=== PATIENT | male | born 1955 | race Caucasian/White ===

== ENCOUNTER 2020-02-11 14:00 | Outpatient (CLI) | payer BC, SELFPAY ==
--- NOTE | ~2020-02-11 | US_ITS ---
US arterial ankle brachial ind INDICATION: Mononeuropathy of the lower extremities TECHNIQUE: Segmental pressures and plethysmographic and Doppler waveforms of the brachial and lower e xtremity arteries were obtained. COMPARISON: None. FINDINGS: Right and left brachial artery pressures of 131 mm Hg and 126 mm Hg, respectively, are concordant (no rmal difference <= 30 mmHg). The right ankle-brachial index (HASEEB) is 1.27 (normal >= 0.9-1.0). The right great toe-brachial index (TBI) is 0.78 (normal >= 0.60). The left HASEEB is 1.21. The left TBI is 0.85. IMPRESSION: 1. Normal bilateral ankle and toe brachial indices. Reviewed, dictated and finalized at location B.
== END 2020-02-11 14:01 | disposition home or self-care (01) ==
PROVIDERS: PCP Family Medicine; Visit Provider Family Medicine
DX: G57.93 Unspecified mononeuropathy of bilateral lower limbs (principal)
CPT/HCPCS: 93922

== ENCOUNTER 2020-06-26 09:31 | Outpatient (CLI) | payer BC, SELFPAY ==
--- NOTE | ~2020-06-26 | XR_ITS ---
EXAMINATION: XR chest 2V DATE: 06/26/2020 10:43 INDICATION: Shortness of breath. TECHNIQUE: Frontal and lateral views of the chest were obtained on 3 radiographs. COMPARISON: CT abdomen and pelvis 08/22/2014 FINDINGS: There is mild atelectasis at left lung base. No pleural effusion or pneumothorax. The heart size is normal. IMPRESSION: 1. Mild atelectasis at left lung base. Reviewed, dictated and finalized at location A. RETE PRECAST MOULDER
[2020-06-26 09:49] LABS: Basophils Absolute Auto 0.05 K/mm3 (0.00-0.10); Basophils Percent Auto 0.9 % (0.0-1.0); Eosinophils Absolute Auto 0.17 K/mm3 (0.02-0.50); Eosinophils Percent Auto 3.1 % (1.0-6.0); Hematocrit 48.7 % (37.0-46.0); Hemoglobin 15.8 g/dL (12.4-15.3); Immature Granulocyte Absolute 0.02 K/mm3 (0.00-0.00); Immature Granulocyte Percent A 0.4 % (0.0-0.0); Lymphocytes Absolute Auto 1.31 K/mm3 (1.10-4.50); Lymphocytes Percent Auto 24.3 % (18.0-42.0); Mean Corpuscular HGB Conc 32.4 g/dL (32.0-36.0); Mean Corpuscular Hemoglobin 30.2 pg (27.0-31.0); Mean Corpuscular Volume 93.1 fL (78.0-102.0); Monocytes Percent Auto 7.4 % (2.0-11.0); Neutrophils Absolute Auto 3.5 K/mm3 (1.7-7.2); Neutrophils Percent Auto 63.9 % (50.0-70.0); Platelet Count Result 235 K/mm3 (150-420); Red Blood Count 5.23 M/mm3 (4.70-6.10); Red Cell Distribution Width 14.2 % (11.6-14.4); White Blood Count 5.4 K/mm3 (4.8-10.8)
[2020-06-26 09:59] LABS: Add Urine Microscopic? NO; Appearance Urine Clear (Clear); Bilirubin Urine Negative (Negative); Blood Urine Negative (Negative); Color Urine Yellow (Yellow); Glucose Urine UA Negative (Negative); Ketones Urine Negative (Negative); Leukocyte Esterase Ur Negative (Negative); Nitrate Urine Negative (Negative); Protein Urine Negative (Negative); Urobilinogen Urine 0.2 mg/dL (0.2-1.0); pH Urine 5.5 (5.0-8.0)
[2020-06-26 10:25] LABS: Alanine Aminotransferase 32 U/L (16-63); Albumin Level 3.8 g/dL (3.4-5.0); Alkaline Phosphatase 64 U/L (46-116); Anion Gap 9 mmol/L (8-16); Aspartate Amino Transferase 18 U/L (15-37); Bilirubin,Total 0.5 mg/dL (0.00-1.00); Blood Urea Nitrogen 14 mg/dL (7-18); Carbon Dioxide 26 mmol/L (21-32); Chloride 105 mmol/L (98-108); Cholesterol 152 mg/dL (0-200); Creatine Kinase 132 U/L (39-308); Estimated Glomerular Filt Rate > 60; Glucose 105 mg/dL (70-99); HDL Direct 40 mg/dL (40-60); LDL Cholesterol Calculated 93 mg/dL (<130); Osmolality Calculated 290 mOsm/kg (285-295); Potassium 4.4 mmol/L (3.5-5.1); Sodium 140 mmol/L (136-145); Total Protein 6.9 g/dL (6.4-8.2); Triglycerides 94 mg/dL (0-150)
== END 2020-06-26 09:32 | disposition home or self-care (01) ==
PROVIDERS: PCP Internal Medicine; Visit Provider Internal Medicine
DX: Z00.00 Encounter for general adult medical examination without abnormal findings (principal); E78.2 Mixed hyperlipidemia; I10 Essential (primary) hypertension; R06.00 Dyspnea, unspecified
CPT/HCPCS: 36415; 71046; 80053; 80061; 81003; 82550; 85025

== ENCOUNTER 2020-06-29 08:35 | Outpatient (CLI) | payer BC, SELFPAY | END 2020-06-29 08:36 | disposition home or self-care (01) | PROVIDERS: PCP Internal Medicine; Visit Provider Internal Medicine | DX: R06.00 Dyspnea, unspecified (principal) | CPT/HCPCS: 94060; 94726; 94729 ==

== ENCOUNTER 2020-07-17 06:59 | Outpatient (CLI) | payer BC, SELFPAY ==
--- NOTE | ~2020-07-17 | CT_ITS ---
EXAMINATION: CT chest abdomen pelvis w con DATE: 07/17/2020 07:41 INDICATION: Left chest pain with deep inspiration. COPD. Left-sided and generalized abdominal pain, n ausea. Skin cancer. TECHNIQUE: Computed tomography (CT) of the chest, abdomen, and pelvis was performed with 100 cc Omnip aque 350 intravenous contrast. Automated exposure control and iterative reconstruction technique were employed. Exam dose: 1713.52 mGy-cm total exam DLP. COMPARISON: 08/22/2014 CT abdomen pelvis FINDINGS: CHEST CT: There is mild patchy infiltrate involving primarily dependent and basilar left lower lobe. There is a focal area of calcification and surrounding probable fibrotic change in the posterior medi al left upper lobe. No hilar or mediastinal mass lesion or lymphadenopathy. Normal size and homogeneous enhancement of th e thyroid gland. Normal heart size. Coronary artery calcification. Mild aortic arch calcification. No pericardial or pleural effusion. Diffuse idiopathic skeletal hyperostosis of the thoracic spine. There is degenerative disc disease of the lower cervical spine. ABDOMEN/PELVIS CT: Probable 7 mm hepatic cyst (series 3 image 138). The liver, gallbladder, bile ducts, pancreas, pancre atic duct and spleen otherwise appear normal. Normal morphology of the adrenal glands. 3 cm posterior mid right renal cyst. 6.5 mm posterior upper pole left renal cyst. 3.4 mm lower pole nonobstructing left renal calculus. No ureteral calculus or hydroureteronephrosis. The urinary bladder is unremarkable. There is prostate enlargement. No suspicious osteolytic or osteoblastic lesions. Moderate degenerative disc disease at L3-4 and L5-S 1 primarily. No suspicious osteolytic or osteoblastic lesions are noted. Right fat-containing inguinal hernia. There is atherosclerotic calcification of the abdominal aorta and iliac arteries but no aneurysm. No intraperitoneal or retroperitoneal or pelvic mass lesion or adenopathy or ascites. Normal appendix. There are numerous diverticula of the sigmoid and descending colon; no CT evidence o f diverticulitis. No bowel obstruction, bowel wall thickening, pneumatosis or intraperitoneal free air is detected. IMPRESSION: Patchy left lower lobe infiltrate 7 mm hepatic cyst Bilateral renal cysts Reviewed, dictated and finalized at Location A. Reviewed, dictated and finalized at location B. TER AND REWINDER MACHINE OPERATOR
== END 2020-07-17 07:00 | disposition home or self-care (01) ==
LOC: CHSIMG 07:00
PROVIDERS: PCP Internal Medicine; Visit Provider Internal Medicine
DX: J44.9 Chronic obstructive pulmonary disease, unspecified (principal); R10.9 Unspecified abdominal pain; R11.0 Nausea
CPT/HCPCS: 71260; 74177; Q9965; Q9967

== ENCOUNTER 2020-10-19 15:50 | Outpatient (CLI) | payer BC, SELFPAY ==
[2020-10-19 16:09] LABS: Hematocrit 47.7 % (37.0-46.0); Hemoglobin 15.6 g/dL (12.4-15.3); Mean Corpuscular HGB Conc 32.7 g/dL (32.0-36.0); Mean Corpuscular Hemoglobin 30.1 pg (27.0-31.0); Mean Corpuscular Volume 92.1 fL (78.0-102.0); Platelet Count Result 193 K/mm3 (150-420); Red Blood Count 5.18 M/mm3 (4.70-6.10); Red Cell Distribution Width 13.4 % (11.6-14.4); White Blood Count 6.7 K/mm3 (4.8-10.8)
[2020-10-19 17:21] LABS: Alanine Aminotransferase 33 U/L (16-63); Albumin Level 3.8 g/dL (3.4-5.0); Alkaline Phosphatase 64 U/L (46-116); Anion Gap 9 mmol/L (8-16); Aspartate Amino Transferase 19 U/L (15-37); Bilirubin,Total 0.5 mg/dL (0.00-1.00); Blood Urea Nitrogen 23 mg/dL (7-18); Calcium 8.6 mg/dL (8.5-10.1); Carbon Dioxide 28 mmol/L (21-32); Chloride 101 mmol/L (98-108); Estimated Glomerular Filt Rate 57; Glucose 112 mg/dL (70-99); Osmolality Calculated 290 mOsm/kg (285-295); Potassium 4.2 mmol/L (3.5-5.1); Prostate Specific Antigen 3.2 ng/mL (< OR = 4.0); Sodium 138 mmol/L (136-145); Total Protein 6.7 g/dL (6.4-8.2)
[2020-10-22 16:42] LABS: Testosterone Total 199 ng/dL (250-1100)
== END 2020-10-19 15:51 | disposition home or self-care (01) ==
PROVIDERS: PCP Internal Medicine
DX: E29.1 Testicular hypofunction (principal); R97.20 Elevated prostate specific antigen [PSA]
CPT/HCPCS: 36415; 80053; 84153; 84403; 85027

== ENCOUNTER 2021-01-19 08:53 | Outpatient (CLI) | payer BC, SELFPAY ==
[2021-01-19 09:08] LABS: Basophils Absolute Auto 0.05 K/mm3 (0.00-0.10); Eosinophils Absolute Auto 0.14 K/mm3 (0.02-0.50); Eosinophils Percent Auto 2.7 % (1.0-6.0); Hematocrit 48.6 % (37.0-46.0); Hemoglobin 16.1 g/dL (12.4-15.3); Immature Granulocyte Absolute 0.03 K/mm3 (0.00-0.00); Immature Granulocyte Percent A 0.6 % (0.0-0.0); Lymphocytes Absolute Auto 1.27 K/mm3 (1.10-4.50); Lymphocytes Percent Auto 24.8 % (18.0-42.0); Mean Corpuscular HGB Conc 33.1 g/dL (32.0-36.0); Mean Corpuscular Hemoglobin 30.9 pg (27.0-31.0); Mean Corpuscular Volume 93.3 fL (78.0-102.0); Monocytes Absolute Auto 0.38 K/mm3 (0.10-0.90); Monocytes Percent Auto 7.4 % (2.0-11.0); Neutrophils Absolute Auto 3.3 K/mm3 (1.7-7.2); Neutrophils Percent Auto 63.5 % (50.0-70.0); Platelet Count Result 205 K/mm3 (150-420); Red Blood Count 5.21 M/mm3 (4.70-6.10); Red Cell Distribution Width 14.5 % (11.6-14.4); White Blood Count 5.1 K/mm3 (4.8-10.8)
[2021-01-19 09:12] LABS: Add Urine Microscopic? NO; Appearance Urine Clear (Clear); Bilirubin Urine Negative (Negative); Blood Urine Negative (Negative); Color Urine Light Yellow (Yellow); Glucose Urine UA Negative (Negative); Ketones Urine Negative (Negative); Leukocyte Esterase Ur Negative (Negative); Nitrate Urine Negative (Negative); Protein Urine Negative (Negative); Urobilinogen Urine 0.2 mg/dL (0.2-1.0)
[2021-01-19 10:12] LABS: Erythrocyte Sedimentation Rate 2 mm/hr (0-20)
[2021-01-19 10:17] LABS: Alanine Aminotransferase 29 U/L (16-63); Albumin Level 3.8 g/dL (3.4-5.0); Alkaline Phosphatase 65 U/L (46-116); Anion Gap 11 mmol/L (8-16); Aspartate Amino Transferase 19 U/L (15-37); Bilirubin,Total 0.5 mg/dL (0.00-1.00); Blood Urea Nitrogen 14 mg/dL (7-18); Calcium 9.1 mg/dL (8.5-10.1); Carbon Dioxide 27 mmol/L (21-32); Chloride 101 mmol/L (98-108); Cholesterol 213 mg/dL (0-200); Creatine Kinase 183 U/L (39-308); Estimated Glomerular Filt Rate > 60; Glucose 106 mg/dL (70-99); HDL Direct 37 mg/dL (40-60); LDL Cholesterol Calculated 158 mg/dL (<130); Osmolality Calculated 288 mOsm/kg (285-295); Potassium 4.3 mmol/L (3.5-5.1); Sodium 139 mmol/L (136-145); Total Protein 6.7 g/dL (6.4-8.2); Triglycerides 92 mg/dL (0-150); Vitamin B12 583 pg/mL (193-986)
[2021-01-19 10:30] LABS: CRP < 0.2 mg/dL (0.0-0.9)
== END 2021-01-19 08:54 | disposition home or self-care (01) ==
PROVIDERS: PCP Internal Medicine; Visit Provider Internal Medicine
DX: E78.2 Mixed hyperlipidemia (principal); R06.00 Dyspnea, unspecified; I10 Essential (primary) hypertension; M62.81 Muscle weakness (generalized); J44.9 Chronic obstructive pulmonary disease, unspecified
CPT/HCPCS: 36415; 80053; 80061; 81003; 82085; 82550; 82607; 85025; 85652; 86140; 94060; 94726; 94729

== ENCOUNTER 2021-03-19 09:53 | Outpatient (CLI) | payer BC, SELFPAY ==
--- NOTE | ~2021-03-19 | CT_ITS ---
EXAMINATION:CT diagnostic chest wo con DATE: 03/19/2021 10:14 INDICATION: Abnormal findings on diagnostic imaging. Left-sided pleuritic chest pain. TECHNIQUE: Computed tomography (CT) of the chest was performed without intravenous contrast. Automate d exposure control and iterative reconstruction technique were employed. The dose-length product (DLP ) was 453.27 mGy-cm. COMPARISON: Chest CT 07/17/2020, chest 2 views 06/26/2020 FINDINGS: There is bronchiectasis in left lung with a lower lung predominance. There are scattered tr ee-in-bud opacities and small centrilobular nodules in left lung involving the lower lobe more than t he upper lobe. There is mucous plugging in basilar left lower lobe. There are two 2 mm nodules in rig ht lung. No pleural effusion. The heart size is normal. There are coronary artery calcifications. No pericardial effusion. There is mild thoracic spondylosis. IMPRESSION: 1. Mild chronic pneumonia in left lung. 2. Bronchiectasis in left lung. Reviewed, dictated and finalized at location A.
== END 2021-03-19 09:54 | disposition home or self-care (01) ==
LOC: CHSIMG 09:54
PROVIDERS: PCP Internal Medicine; Visit Provider Internal Medicine
DX: R93.89 Abnormal findings on diagnostic imaging of other specified body structures (principal)
CPT/HCPCS: 71250

== ENCOUNTER 2021-04-08 02:25 | Day surgery (SDC) | payer BC, SELFPAY ==
[2021-03-30 13:42] VITALS: BMI 32.5
--- NOTE | 2021-04-07 13:02 | P.PNAN_ITS ---
Anes - Initial Pre Proc Eval Procedure: Operation Date: 04/08/21 08:30 Proposed Procedures p Screening Colonoscopy - Tony Shanks DO Date/Time: 04/07/21 13:02 Surgeon: Tony Shanks DO Pre Op Diagnosis: neoplasm screening Patient Data Age: 65 Gender: M Height: 1.85 m Weight: 112 kg Allergies Allergy/AdvReac Type Severity Reaction Status Date / Time No Known Allergies Verified 04/08/21 07:51 Home Medications Medication Instructions Recorded Confirmed Type latanoprost 0.005 % eye drops 1 drop EACH EYE QPM 07/22/19 03/30/21 History tamsulosin 0.4 mg capsule 0.4 mg PO DAILY 07/22/19 03/30/21 History testosterone cypionate 200 mg/mL 200 mg IM .BIWEEKLY ml 07/22/19 03/30/21 History intramuscular oil losartan 25 mg PO DAILY 03/30/21 03/30/21 History umeclidinium-vilanterol [Anoro 1 inh INHALATION DAILY 03/30/21 03/30/21 History Ellipta] Patient hx anesthesia problems: none Family hx anesthesia problems: none [facility] Past Medical History Medical History (Updated 04/07/21 @ 13:03 by Tristan Brice DO) Asthma First degree heart block GERD (gastroesophageal reflux disease) Hyperlipidemia Hypertension Hypogonadism in male PONV (postoperative nausea and vomiting) Retinal tear of right eye Traumatic rupture of biceps femoris tendon Surgical History Surgical History History of cataract removal with insertion of prosthetic lens Hx of tonsillectomy Family History Family History Father Artificial pacemaker Social History Social History Smoking status: Never smoker Second hand tobacco smoke exposure: No Alcohol intake: never Alcohol use details: Rarely Substance use: never Substance use type: does not use Living arrangements: with family Gender identity (if verbalized by the patient): Male Spiritual care concerns: No Anes - Eval Final PreProcedure Day of Procedure 04/07/21 13:02 Patient weight: obese Heart: regular rate and rhythm Lungs: clear to auscultation and normal air movement Airway: Mallampati scale class II Neurological: alert and oriented Last oral intake: >/= 8 hours ASA classification: III Emergent: no Anesthetic plan: proceed Anesthesia type and monitoring: general GIVS and standard monitoring Informed Consent: The patient's anesthetic plan and its attendant risks and benefits were discussed with the patient/family/POA. Questions were solicited and answers provided to the satisfaction of the patient/family/POA.
[2021-04-08 07:53] VITALS: BP 118/87; PULSE 76; RESP 16; TEMP 35.7; O2SAT 95; BMI 32.1
[2021-04-08] MEDS: LACTATED RINGERS 1,000 ML 150 ML IV CONT (07:56)
--- NOTE | 2021-04-08 08:48 | PM.IMHP ---
H&P: HPI History of Present Illness Date/Time: 04/08/21 08:48 Chief Complaint: screening for colorectal cancer Narrative: this is a 65-year-old man who presents for colonoscopy. His last colonoscopy was about 15 years ago. He denies any prior history of polyps. He denies any hematochezia or melena. He denies any family history of colon cancer. Review of Systems Review of Systems: All systems reviewed & are unremarkable except as noted in HPI and below Constitutional: Constitutional: Denies chills, Denies fever(s), Denies headache(s) and Denies weight loss Eyes: Eyes: Denies change in vision ENT: Denies dizziness, Denies headache(s), Denies neck mass and Denies throat swelling Cardiovascular: Cardiovascular: Denies chest pain, Denies lightheadedness and Denies dyspnea Respiratory: Respiratory: Denies cough, Denies dyspnea and Denies wheezing Gastrointestinal: Gastrointestinal: Denies abdominal pain, Denies change in bowel habits, Denies nausea and Denies vomiting Genitourinary: Genitourinary: Denies hematuria and Denies dysuria Musculoskeletal: Musculoskeletal: Reports as per HPI Integumentary/Breasts: Skin/Breast: Reports as per HPI Neurologic: Denies dizziness and Denies headache(s) Allergic/Immunologic: Allergic/Immunologic: Denies throat swelling and Denies wheezing [facility] Past Medical History Medical History (Updated 04/08/21 @ 08:49 by Tony Shanks DO) Asthma First degree heart block GERD (gastroesophageal reflux disease) Hyperlipidemia Hypertension Hypogonadism in male PONV (postoperative nausea and vomiting) Retinal tear of right eye Traumatic rupture of biceps femoris tendon Surgical History Surgical History History of cataract removal with insertion of prosthetic lens Hx of tonsillectomy Family History Family History Father Artificial pacemaker Social History Social History Smoking status: Never smoker Second hand tobacco smoke exposure: No Alcohol intake: never Alcohol use details: Rarely Substance use: never Substance use type: does not use Living arrangements: with family Gender identity (if verbalized by the patient): Male Spiritual care concerns: No Meds Home Medications and Allergies Home Medications Medication Instructions Recorded Confirmed Type latanoprost 0.005 % eye drops 1 drop EACH EYE QPM 07/22/19 03/30/21 History tamsulosin 0.4 mg capsule 0.4 mg PO DAILY 07/22/19 03/30/21 History testosterone cypionate 200 mg/mL 200 mg IM .BIWEEKLY ml 07/22/19 03/30/21 History intramuscular oil losartan 25 mg PO DAILY 03/30/21 03/30/21 History umeclidinium-vilanterol [Anoro 1 inh INHALATION DAILY 03/30/21 03/30/21 History Ellipta] Allergies Allergy/AdvReac Type Severity Reaction Status Date / Time No Known Allergies Verified 04/08/21 07:51 Vital Signs Vital Signs - 24 hr 04/08/21 07:53 Temperature 35.7 C L Pulse Rate 76 Respiratory Rate 16 Blood Pressure 118/87 Pulse Oximetry 95 Exam Const: General: no acute distress and alert Orientation/consciousness: patient oriented x3 HENMT: Head: normocephalic and atraumatic Ears: hearing grossly normal bilaterally General nose exam: Normal nares present Mouth: Yes Normal oral and palatal mucosa present Eyes: Periorbital: periorbital findings normal Sclera: sclerae normal EOM: EOMs intact bilaterally Neck: Neck: normal visual inspection, no lymphadenopathy and trachea midline Chest: Chest palpation & inspection: normal inspection of the chest Resp: Effort & Inspection: normal respiratory effort Auscultation: clear to auscultation bilaterally Cardio: Jugular venous distension: no JVD Rate: regular rate Rhythm: regular rhythm Heart sounds: S1 normal heart sound present and S2 normal heart sound present P
[2021-04-08 09:17] VITALS: BP 83/48; PULSE 69; RESP 18; O2SAT 96
[2021-04-08 09:27] VITALS: BP 95/59; PULSE 69; RESP 21; O2SAT 95
[2021-04-08 09:37] VITALS: BP 112/80; PULSE 72; RESP 15; O2SAT 95
== END 2021-04-08 09:56 | disposition home or self-care (01) ==
PROVIDERS: PCP Internal Medicine; Visit Provider Surgery
PROC: 0DJD8ZZ Inspection of Lower Intestinal Tract, Via Natural or Artificial Opening Endoscopic (ICD-10-PCS; CPT 45378; principal; 2021-04-08 08:30)
DX: Z12.11 Encounter for screening for malignant neoplasm of colon (principal); J45.909 Unspecified asthma, uncomplicated; I10 Essential (primary) hypertension; K21.9 Gastro-esophageal reflux disease without esophagitis; E78.5 Hyperlipidemia, unspecified
CPT/HCPCS: G0121; J2001; J2704; J7120

== ENCOUNTER 2021-09-30 14:40 | Outpatient (CLI) | payer MEDICARE, BC, SELFPAY ==
--- NOTE | ~2021-09-30 | XR_ITS ---
EXAMINATION: XR knee RT min 4V DATE: 09/30/2021 15:22 INDICATION: Right knee pain. TECHNIQUE: 4 views of right knee on 5 radiographs were obtained. COMPARISON: None. FINDINGS: Bone alignment is normal. No fracture. There is severe osteoarthritis of medial compartment and mild osteoarthritis of lateral and patellofemoral compartments. No knee joint effusion. IMPRESSION: 1. Severe right knee osteoarthritis. Reviewed, dictated and finalized at location A. CAL COATING TECHNICIAN
--- NOTE | ~2021-09-30 | XR_ITS ---
EXAMINATION: XR knee LT min 4V DATE: 09/30/2021 15:22 INDICATION: Left knee pain. TECHNIQUE: 4 views of left knee were obtained. COMPARISON: None. FINDINGS: Bone alignment is normal. No fracture. There is severe osteoarthritis of medial compartment and mild osteoarthritis of lateral and patellofemoral compartments. No knee joint effusion. IMPRESSION: 1. Severe left knee osteoarthritis. Reviewed, dictated and finalized at location A. DRY PRESS OPERATOR
--- NOTE | ~2021-09-30 | XR_ITS ---
XR lumbar spine 2-3V 09/30/2021 15:22 Indication: Low back pain Procedure: 3 views lumbar spine Comparison: No prior studies for comparison. Findings: Vertebral body heights are maintained. There is disc narrowing at L3-4, L4-5 and L5-S1. The re is moderate facet hypertrophy at these levels. No fracture, subluxation or spondylolisthesis. Ther e is atherosclerosis. Impression: 1: Mild-moderate lumbar spondylosis. Reviewed, dictated and finalized at location A. LABOR AND DELIVERY Impression: 1: Mild-moderate lumbar spondylosis.
== END 2021-09-30 14:41 | disposition home or self-care (01) ==
LOC: CHSIMG 14:45
PROVIDERS: PCP Internal Medicine; Visit Provider Internal Medicine
DX: M48.061 Spinal stenosis, lumbar region without neurogenic claudication (principal); M25.562 Pain in left knee; M25.561 Pain in right knee
CPT/HCPCS: 72100; 73564

== ENCOUNTER 2021-10-05 08:55 | Outpatient (CLI) | payer MEDICARE, BC, SELFPAY ==
--- NOTE | ~2021-10-05 | MR_ITS ---
EXAMINATION: MR lumbar spine wo con DATE: 10/05/2021 09:33 INDICATION: Low back pain. Lumbar spinal canal stenosis. TECHNIQUE: Magnetic resonance imaging (MRI) of the lumbar spine was performed without intravenous con trast. Sequences included sagittal T2-weighted FSE, sagittal T2-weighted FS FSE, sagittal T1-weighted FSE, and axial T2-weighted FSE. COMPARISON: Lumbar spine radiographs 09/30/2021 FINDINGS: There is 3 mm retrolisthesis of L3 on L4. Vertebral body heights are normal. There is mildl y decreased disc height at L2-L3, moderately decreased disc height at L3-L4, mildly decreased disc he ight at L4-L5, and moderately decreased disc height at L5-S1 with endplate remodeling. There is a Tar armen cyst in S2. The distal spinal cord signal intensity is normal. The conus medullaris is at L1. The re are cysts in the kidneys measuring up to 3.3 cm on the right. The following disc levels are specif ically discussed: L1-L2: The disc does not extend beyond the endplate margin. There is mild bilateral facet joint osteo arthritis. There is no neural foraminal stenosis. There is no central canal stenosis. L2-L3: The disc is bulging and has an annular fissure. There is moderate bilateral facet joint osteoa rthritis. There is mild bilateral neural foraminal stenosis. There is mild central canal stenosis. L3-L4: The disc is bulging and has an annular fissure. There is moderate bilateral facet joint osteoa rthritis. There is mild bilateral neural foraminal stenosis. There is mild central canal stenosis. L4-L5: The disc is bulging and has an annular fissure. There is severe bilateral facet joint osteoart hritis. There is mild right and moderate left neural foraminal stenosis. There is mild central canal stenosis. L5-S1: The disc is bulging and has an annular fissure. There is severe bilateral facet joint osteoart hritis. There is mild bilateral neural foraminal stenosis. There is mild central canal stenosis. IMPRESSION: 1. Moderate lumbar spondylosis. Reviewed, dictated and finalized at location A. [place] DEPARTMENT RESET
== END 2021-10-05 08:56 | disposition home or self-care (01) ==
LOC: CHSIMG 08:56
PROVIDERS: PCP Internal Medicine; Visit Provider Internal Medicine
DX: M48.061 Spinal stenosis, lumbar region without neurogenic claudication (principal); M25.562 Pain in left knee; M25.561 Pain in right knee
CPT/HCPCS: 72148

== ENCOUNTER 2022-12-06 07:29 | Outpatient (CLI) | payer MEDICARE, BC, SELFPAY ==
--- NOTE | ~2022-12-06 | US_ITS ---
Limited Abdominal Sonogram: Real-time sonographic imaging of the right upper quadrant was performed. Clinical History: Abdominal pain Findings: The liver appears mildly echogenic, with no evidence of mass lesion or bile duct dilatatio n. Main portal vein demonstrates normal direction of flow. The gallbladder is well distended, and shraddha ears normal with no evidence of gallstone or wall thickening. The common bile duct measures 5 mm. Th e visualized pancreas, aorta, and IVC are unremarkable. Impression: Diffuse fatty infiltration of liver. Reviewed, dictated and finalized at location M. Impression: Diffuse fatty infiltration of liver.
== END 2022-12-06 07:30 | disposition home or self-care (01) ==
LOC: CHSIMG 07:31
PROVIDERS: PCP Internal Medicine; Visit Provider Internal Medicine
DX: R10.11 Right upper quadrant pain (principal); K76.0 Fatty (change of) liver, not elsewhere classified
CPT/HCPCS: 76705

== ENCOUNTER 2022-12-06 10:01 | Outpatient (RCR) | payer MEDICARE, BC, SELFPAY ==
--- NOTE | 2022-12-06 10:57 | PTOPEVAL1 ---
Assessment and note entered by JT File, PT Evaluation Information Assessment Status Evaluation Diagnosis lumbago, DDD Onset 11/28/22 Subjective Information patient reports he has been having pain in the lower back that runs to his R more than L flank. he reports he has noticed that since sleeping on a better mattress he has had less pain. he reports he is only able to sleep on the L side, but reports the pain is mostly on the R side. he reports he has only had L side lower back pain maybe on time. he reports he has increased pain with trying to lay down and fall asleep. he reportd uring his day the back loosens up and he is able to get though his daily living. he reports most of the time waking up his back just feels stiff. he reports also reaching back behind him for pericare after using the restroom can be difficult. he reports he has had xrays and an MRI of the lumbar spine recently. Reported Pain Level Pain Score 1: Self Report Assessment PT Clinical Summary mr. ramos is a 67 yo man who presents to skilled PT services with an acute flare up of lower back pain. he presents with no radicular symptoms in the LE's, but signs and symptoms of DDD of the lumbar spine. he displays mm tightness in the hips, decreased lumbar mobility, pain, and weakness of the core and hips. he would benefit from continued skilled PT to address his objective /functional deficits and return to his prior level functional activity performance/quality of life. Plan of Care Interventions Electrical Stimulation,Hot Pack/Cold Pack,Manual Therapy,Neuro Re-education,Patient/Caregiver Educati,Therapeutic Activities,Therapeutic Exercise PT Services Indicated Yes Treatment Frequency and 3x weekly for 12 visits Duration These treatments will address the objective and functional deficits as defined above. The patient will be advanced safely and appropriately in order for the patient to progress towards his/her prior level of function. Additional exercises will be introduced and as well as a comprehensive home exercise program upon discharge, if needed, ?to ensure carryover of functional gains achieved in the clinic. This treatment plan has been reviewed and agreement upon by the patient.
--- NOTE | 2022-12-21 07:57 | PTOPDC ---
Assessment and note entered by JT File, PT Evaluation Information Assessment Status Discharge Diagnosis lumbago, DDD Onset 11/28/22 Subjective Information patient reports he feels great this date. he reports he has no pain. he reports he is only woken up with tightness in the mornings, but loosens up with exercise. Reported Pain Level Pain Score 0: Self Report Assessment PT Clinical Summary mr. ramos presents to skilled PT for his 5th skilled PT visit. he presents this date with no pain, and has had no pain in the lower back for over a week. he reports he is compliant with his HEP daily at home. he has met all goals for skilled PT. as of this date, his therapy will be put on hold. he will continue with HEP independent . he will be DC'd in 1 month if no return to skilled PT. Plan of Care PT Services Indicated Yes
== END 2022-12-21 14:58 | disposition home or self-care (01) ==
LOC: CHSPT 10:01
PROVIDERS: PCP Internal Medicine; Visit Provider Internal Medicine
DX: M54.50 Low back pain, unspecified (principal); M47.816 Spondylosis without myelopathy or radiculopathy, lumbar region; M51.36 Other intervertebral disc degeneration, lumbar region
CPT/HCPCS: 97014; 97110; 97161; 97530; G0283

== ENCOUNTER 2023-04-12 08:56 | Outpatient (CLI) | payer MEDICARE, BC, SELFPAY | END 2023-04-12 08:57 | disposition home or self-care (01) | PROVIDERS: PCP Internal Medicine; Visit Provider Internal Medicine | DX: H90.3 Sensorineural hearing loss, bilateral (principal) | CPT/HCPCS: 92557; 92567 ==

== ENCOUNTER 2023-12-26 14:00 | Outpatient (CLI) | payer MEDICARE, BC, SELFPAY | END 2023-12-26 14:01 | disposition home or self-care (01) | LOC: CHSIMG 14:04 | PROVIDERS: PCP Internal Medicine; Visit Provider Nurse Practitioner Family | DX: M79.671 Pain in right foot (principal) | CPT/HCPCS: 73630 ==

== ENCOUNTER 2023-12-28 15:10 | Outpatient (RCR) | payer MEDICARE, BC, SELFPAY ==
--- NOTE | 2023-12-28 17:55 | OPREHPOC ---
Outpatient Therapy Plan of Care This is a Multidisciplinary Plan of Care that may contain components documented by all disciplines (PT, OT, and ST.) PT Problem 1 PT Problem #1 Knowledge Deficit PT Goal 1 Goal The patient will be independent in a home exercise program. Target Visit 4 PT Problem 2 PT Problem #2 Pain PT Goal 1 Goal The patient will report no greater than 2/10 right foot pain with ambulation. Target Visit 12 PT Problem 3 PT Problem #3 Impaired Range of Motion PT Goal 1 Goal The patient will demonstrate improved right ankle dorsiflexion AROM to 5 degrees and plantarflexion to 40 degrees to improve gait. Target Visit 12 PT Problem 4 PT Problem #4 Impaired Functional Mobil PT Goal 1 Goal The patient will demonstrate less than 30% self perceived disability per the LEFS. The patient will demonstrate the ability to ambulate over uneven terrain without right ankle pain. Target Visit 12 PT Problem 5 PT Problem #5 Impaired Strength PT Goal 1 Goal The patient will demonstrate 4+/5 right ankle strength to return to yard and outdoor work. Target Visit 12
--- NOTE | 2023-12-28 17:55 | PTOPEVAL1 ---
Assessment and note entered by Sahara Benavidez, PT Evaluation Information Assessment Status Evaluation Diagnosis R foot pain Onset 12/20/23 Subjective Information Charbel Hyde reports he was standing in the ditch weedeating 0n 12/20/23 and he had his right foot planted at a weird angle. He turned his foot a bit and felt a pop along the outer side of the foot. He thought he heard a pop too. He had pain but he was able to continue with yard work. He notes a few days later he went up the stairs leading with the right foot and felt excruciating pain. He then unexpectedly put all his weight on his right leg the next day when he stepped on a small rock with his left foot. He had excruciating pain and swelling. He went to the doctor on and x-rays were taken which came back normal. He woke with extreme pain and swelling on 12/27/23 and had to start using a cane. He notes pain is not as bad today. Reported Pain Level Pain Score 7: Self Report Assessment PT Clinical Summary Charbel Hyde presents with right foot pain. He is reporting difficulty with walking and standing which leads to decreased ability to perform relations director, yard work, and grocery shop. He objectively demonstrates tenderness at the right ATFL, positive right ankle anterior drawer and valgus tilt test, decreased and painful right ankle AROM, decreased right ankle strength, right ankle edema, impaired gait, and decreased balance. He will benefit from skilled PT to address these limitations. Plan of Care Interventions Electrical Stimulation,Gait Training,Hot Pack/Cold Pack,Intermittent Compression,Manual Therapy, Neuro Re-education,Patient/Caregiver Educati, Therapeutic Activities,Therapeutic Exercise PT Services Indicated Yes Treatment Frequency and 3 times a week for 12 visits Duration These treatments will address the objective and functional deficits as defined above. The patient will be advanced safely and appropriately in order for the patient to progress towards his/her prior level of function. Additional exercises will be introduced and as well as a comprehensive home exercise program upon discharge, if needed, ?to ensure carryover of functional gains achieved in the clinic. This treatment plan has been reviewed and agreement upon by the patient.
--- NOTE | 2024-01-24 07:54 | PTOPPROG ---
Assessment and note entered by Madhav Carrillo Evaluation Information Assessment Status Progress Diagnosis R foot pain Onset 12/20/23 Subjective Information Pt. reports that he experienced a small twinge of pain on the outside of the right foot yesterday. He states that he is doing better overall, and pain is less intense and frequent. He reports that he has not yet returned to completing regular outdoor yard work. He states that he would like to focus on transitioning to being able to walk through his yard. Assessment PT Clinical Summary Pt. has attended a total of 10 treatment sessions. He has demonstrated progress in regards to ROM and strength. He has not yet returned to outdoor activities and at this time suggest pt. begin to navigate more outdoor terrain. Recommend continued skilled PT in order to assist with pt. being able to transition to normal IADL's without limitation. Plan of Care Interventions Electrical Stimulation,Hot Pack/Cold Pack,Manual Therapy,Neuro Re-education,Patient/Caregiver Education,Therapeutic Activities,Therapeutic Exercise PT Services Indicated Yes Treatment Frequency and Continue for 2 additional treatment sessions Duration focused on improving remaining strength and ROM deficits and assist in transition to outdoor activities. These treatments will address the objective and functional deficits as defined above. The patient will be advanced safely and appropriately in order for the patient to progress towards his/her prior level of function. Additional exercises will be introduced and as well as a comprehensive home exercise program upon discharge, if needed, ?to ensure carryover of functional gains achieved in the clinic. This treatment plan has been reviewed and agreement upon by the patient.
== END 2024-01-29 09:01 | disposition home or self-care (01) ==
LOC: CHSPT 15:10
PROVIDERS: PCP Internal Medicine; Visit Provider Internal Medicine
DX: M79.671 Pain in right foot (principal)
CPT/HCPCS: 97016; 97110; 97112; 97140; 97161